=== PATIENT | female | born 1955 | race African-American/Black ===

== ENCOUNTER → 2017-09-22 | Outpatient (CLI) | payer OTHER ==
--- NOTE | 2017-09-26 09:32 | MAM ---
EXAM DESCRIPTION: 3D Screening BILATERAL : Digital Mammography. CLINICAL HISTORY: 62 years Female SCREEN right breast cancer discovered in 2009 with right mastectomy. No family history breast cancer. Childbirth. Postmenopausal. No HRT. COMPARISON: 2-D digital screening bilateral study 04/25/2009.. No prior reports available. TECHNIQUE: Left breast CC and MLO projection full-field images, 3-D tomosynthesis digital mammographic technique. CAD not utilized. FINDINGS: Left breast parenchymal density pattern is: Heterogeneously dense breast tissue, which may obscure small masses. No skin thickening or nipple retraction. Well-defined oval-shaped mass in the lateral aspect of the middle third of the left breast which has developed 3 large coarse calcifications since the prior study. The mass appears otherwise stable. A smaller mass at the 1130 clock position of the anterior third has a coarse calcification and is unchanged. No new focal, stellate mass or density, focal asymmetry , and no suspicious microcalcifications left breast. Increasing fatty replacement in the left breast since the prior study IMPRESSION: BI-RADS CATEGORY: 0 - INCOMPLETE- Need additional imaging evaluation. FOLLOW-UP: Recall for additional imagin-D tomosynthesis diagnostic left breast full-field LM image and 2-D digital spot magnification left breast region of interest lateral left breast posterior third. Targeted left breast ultrasound to follow if indicated by diagnostic images.. Written communication concerning the IMPRESSION and Follow-up, will be mailed to the patient and referring health care provider. Electronically signed by: Moses Fuentes MD 09/26/2017 9:30 AM CDT
== END ==
LOC: MAMMO 10:00
PROVIDERS: ATTEND Family Medicine
DX: Z12.31 Encounter for screening mammogram for malignant neoplasm of breast (principal)

== ENCOUNTER → 2018-10-16 | Outpatient (CLI) | payer OTHER ==
--- NOTE | 2018-10-16 20:12 | US ---
EXAM DESCRIPTION: Breast,Left (accession [id number]), Diagnostic Mammo,Left (accession [id number]): Ultrasound CLINICAL HISTORY: 63 yearsFemaleABNORMAL MAMMO . Right breast mastectomy for cancer 2009. No family history breast cancer. History of breast fibroadenomas. Childbirth. Postmenopausal 15+ years. No HRT Lifetime risk of developing breast cancer (Tyrer-Cuzick model)(%): Not calculated due to personal history of breast cancer. COMPARISON: Left breast screening digital breast tomosynthesis 09/22/2017. TECHNIQUE: Left breast LM projection full-field images, digital mammographic tomosynthesis technique. Left 2-D digital full-field images. LM, CC, and MLO CAD not available. . Transcutaneous scanning of the left breast utilizing hand-scale and Doppler modes. Scanning performed by the java scala developer and Dr. Fuentes. FINDINGS: The breast parenchymal density pattern is: Heterogeneously dense breast tissue, which may obscure small masses. No skin thickening or nipple retraction In the upper outer quadrant of the middle third of the left breast is a circumscribed and lobulated mass containing 3 large calcifications. 3:00 position, 11 cm from the nipple. Minimal change compared to the prior study. Long axis is 1.8 cm.. Subtle change in margins since the prior study No new focal, stellate mass or density, focal asymmetry , and no suspicious microcalcifications left breast. Ultrasound: Scanning of the upper-outer quadrant of the left breast at the 3:00 position, 11 cm from the nipple. Hypoechoic mass with circumscribed margins and central echogenic object representing calcifications. Posterior acoustic shadowing. Nonvascular. Wider than tall orientation. Dimensions 1.1 x 1.2 cm. No distinct cyst. No parenchymal edema. IMPRESSION: BI-RADS CATEGORY: 3 - PROBABLY BENIGN. Management: Short interval (6-month) diagnostic left breast tomosynthesis and targeted left breast ultrasound. The FINDINGS and the FOLLOW-UP plan were reviewed in person with the patient after the examination. Written communication explaining the IMPRESSION and FOLLOW-UP will be mailed to the patient and referring care provider. Electronically signed by: Moses Fuentes MD 10/16/2018 8:10 PM CDT
== END ==
LOC: US 07:59
PROVIDERS: ATTEND Family Medicine
DX: C44.501 Unspecified malignant neoplasm of skin of breast (principal); R92.8 Other abnormal and inconclusive findings on diagnostic imaging of breast

== ENCOUNTER 2019-09-29 08:09 | Emergency (ER) | payer OTHER ==
[2019-09-29 08:31] VITALS: BP 178/90; TEMP 98.5; O2SAT 99
--- NOTE | 2019-09-29 08:31 | ED.PDOC ---
History of Present Illness - General Chief Complaint: Skin/Abrasion/Tear Stated Complaint: Systemic rash all over x 7 days Time Seen by Provider: 09/29/19 08:24 Source: patient, RN notes reviewed, Vital Signs reviewed, family Exam Limitations: no limitations - History of Present Illness Initial Comments: Patient is a 64-year-old female who presents to ED for hives and allergic reaction. States her rash began 6 days ago. She was seen by her PCP 5 days ago and started on Benadryl and prednisone with minimal relief. Has itchy red rash to trunk and all 4 extremities. States she has been using a different household cleaner and dyer, but denies any new foods, medication or other exposures. She denies any difficulty breathing or swallowing or facial edema. Home Medications: Ambulatory Orders Amlodipine Besylate 5 mg PO DAILY 09/29/19 Famotidine [Pepcid Tab] 20 mg PO BID 7 Days #14 tab 09/29/19 Methylprednisolone [Medrol Dose Osbaldo] 4 mg PO DAILY 6 Days #21 tab 09/29/19 diphenhydrAMINE HCL [Benadryl] 25 mg PO Q8H 7 Days #21 cap 09/29/19 methylPREDNISolone TAB [Medrol Tab] 4 mg PO DAILY 09/29/19 Review of Systems - Review of Systems Constitutional: Denies: chills, fever, weakness EENTM: Denies: nose congestion, throat pain, throat swelling, mouth swelling Respiratory: Denies: cough, short of breath, wheezing Cardiology: Denies: chest pain, palpitations, syncope Gastrointestinal/Abdominal: Denies: abdominal pain, nausea, vomiting Musculoskeletal: Denies: back pain, neck pain Skin: States: see HPI Endocrine: States: no symptoms reported All other Systems: Reviewed and Negative Physical Exam - Physical Exam General Appearance: Alert, Comfortable, No apparent distress Ears, Nose, Throat: normal pharynx, other - No lip or tongue edema. Neck: non-tender, full range of motion, supple Respiratory: chest non-tender, lungs clear, normal breath sounds, no respiratory distress, no accessory muscle use - No wheezes Cardiovascular/Chest: regular rate, rhythm, no edema, no murmur Gastrointestinal/Abdominal: non tender, soft, no pulsatile mass Back Exam: no CVA tenderness, no vertebral tenderness Extremity: normal range of motion, non-tender Neurologic: no motor/sensory deficits, alert, normal mood/affect, oriented x 3 Skin Exam: rash - Urticarial rash to trunk and all 4 extremities. no facial rash or edema Progress - Progress Progress: 09/29/19 08:33 Pt has urticarial rash x 6 days. no respiratory symptoms. Has been on Prednisone x 4 days with minimal improvement. Will treat with IM Slumedrol in ED then start Medrol Dosepack. Benadryl and pepcid. Will avoid possible exposures and f/u with PCP in 1-2 days for recheck. SRP given. Departure - Departure Clinical Impression: Urticaria Allergic reaction Qualifiers: Encounter type: initial encounter Qualified Code(s): T78.40XA - Allergy, unspec ified, initial encounter Time of Disposition: 08:36 Disposition: Discharge to Home or Self Care Condition: Good Departure Forms: ED Discharge - Pt. Copy, Patient Portal Self Enrollment Instructions: DI for Abrasion, Hives (DC) Diet: resume usual diet Activity: increase activity as tolerated Referrals: Jimenez Vega MD [Primary Care Provider] - 1-2 Days Prescriptions: diphenhydrAMINE HCL [Benadryl] 25 mg PO Q8H 7 Days #21 cap Methylprednisolone [Medrol Dose Osbaldo] 4 mg PO DAILY 6 Days #21 tab Famotidine [Pepcid Tab] 20 mg PO BID 7 Days #14 tab Home Medications: Ambulatory Orders Amlodipine Besylate 5 mg PO DAILY 09/29/19 Famotidine [Pepcid Tab] 20 mg PO BID 7 Days #14 tab 09/29/19 Methylprednisolone [Medrol Dose Osbaldo] 4 mg PO DAILY 6 Days #21 tab 09/29/19 diphenhydrAMINE HCL [Benadryl] 25 mg PO Q8H 7 Days #21 cap 09/29/19 methylPREDNISolone TAB [Medrol Tab] 4 mg PO DAILY 09/29/19
[2019-09-29] MEDS: methylPREDNISolone SODIUM SUC 125 MG/2 ML VIAL IM ONE (08:33)
== END 2019-09-29 08:50 | disposition home or self-care (01) ==
LOC: ER 08:09
DX: L50.0 Allergic urticaria (principal)